=== PATIENT | male | born 2000 | race Two or more races ===

== ENCOUNTER 2023-07-27 15:44 | Emergency (ER) | payer OTHER ==
[~2023-07-27] VITALS: Ht 180.3 cm; Wt 65.3 kg
[~2023-07-27 15:44] MED LIST: BENADRYL50 MG PO
[2023-07-27] MEDS ORDERED: G-ZYNCOF 20-40473 ML PO (19:56)
[2023-07-27] MEDS ORDERED: AZITHROMYCIN250 MG PO (19:56)
== END 2023-07-27 21:10 | disposition home or self-care (01) ==
LOC: ER 15:44
DX: J06.9 Acute upper respiratory infection, unspecified (principal); B34.9 Viral infection, unspecified; Z20.822 Contact with and (suspected) exposure to COVID-19